=== PATIENT | male | born 1990 | race Caucasian/White ===

== ENCOUNTER 2021-01-02 19:07 | Emergency (ER) | payer SELFPAY ==
[2021-01-02 19:17] VITALS: BP 121/75; PULSE 77; RESP 16; TEMP 36.7; O2SAT 95; BMI 20.9
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
[2021-01-02] MEDS: HYDROcodone-acetaminophen 5-325 mg Tablet 1 TAB PO (19:51)
[2021-01-02 20:41] VITALS: BP 141/72; PULSE 94; RESP 16; TEMP 36.8; O2SAT 95
[2021-01-02 21:15] VITALS: BP 141/72; PULSE 97; RESP 16; TEMP 36.8; O2SAT 97
== END 2021-01-02 21:20 | disposition home or self-care (01) ==
PROVIDERS: Emergency Provider Emergency Medicine
DX: S80.00XA Contusion of unspecified knee, initial encounter (principal); V89.2XXA Person injured in unspecified motor-vehicle accident, traffic, initial encounter; Z77.22 Contact with and (suspected) exposure to environmental tobacco smoke (acute) (chronic)
CPT/HCPCS: 70450; 73562; 99283

== ENCOUNTER → 2021-02-07 11:48 | Outpatient (BNVA) | payer OTHER, SELFPAY | PROVIDERS: Visit Provider Registered Nurse Neonatal Intensive Care | DX: Z20.822 Contact with and (suspected) exposure to COVID-19 (principal) | CPT/HCPCS: 87635 ==

== ENCOUNTER 2022-07-06 18:25 | Emergency (ER) | payer SELFPAY ==
[2022-07-06 18:44] VITALS: BP 131/83; PULSE 78; RESP 14; TEMP 36.7; O2SAT 97
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
== END 2022-07-06 19:50 | disposition home or self-care (01) ==
PROVIDERS: Emergency Provider Nurse Practitioner Family
DX: S29.012A Strain of muscle and tendon of back wall of thorax, initial encounter (principal); S50.01XA Contusion of right elbow, initial encounter; V43.52XA Car driver injured in collision with other type car in traffic accident, initial encounter
CPT/HCPCS: 72072; 72100; 73080; 99283

== ENCOUNTER 2023-09-30 12:54 | Inpatient (IN) | payer MEDICAID, SELFPAY ==
--- NOTE | 2023-09-30 13:04 | ED.C_ITS ---
HPI - Psych 2 General: Chief Complaint: Psychiatric Symptoms Stated Complaint: MHE Time Seen by Provider: 09/30/23 12:55 Source: patient Mode of arrival: ambulatory Limitations: no limitations History of Present Illness: 33-year-old male who has a history of de pression states that he has been under a lot of stress lately he is going through custody battles and is causing him severe depression. He denies any active suicidal plans he had some passing thoughts but denies any suicidality currently states she just feels very depressed and wants to get some help. Denies any worsening improving factors. Associated symptoms: Reports depression; Deny suicidal ideation Review of Systems 2 Const: Denies: fever(s), chills, body aches or change in appetite ENMT: Denies: throat pain or dental pain Card: Denies: chest pain Resp: Denies: dyspnea GI: Denies: abdominal pain, nausea, vomiting or diarrhea Musc: Denies: neck pain or back pain Skin/Breast: Denies: rash Neuro: Denies: headache(s) Psych: Reports: depression; Denies: suicidal ideation Rodolfo/Lymph: Denies: easy bruising PFSH ED 2 PFSH: Medical History (Updated 09/30/23 @ 13:36 by Mikhail Cowart MD) No active medical problems Surgical History No history of previous surgery Family History (Updated 02/17/22 @ 15:13 by PHYLLIS Romero) Mother Cancer Colon Father Cancer Skin Other Dementia Hypertension Denies family history of Diabetes Stroke Social History Smoking and tobacco/nicotine status: never used tobacco/nicotine Second hand smoke exposure: Yes Alcohol intake: unknown Substance/Drug Use: unknown Adopted: No Caregiver/support person: No Lives independently: Yes Household members: family Housing: House Marital status: Single Number of children: 0 service: No Current occupational status: employed Current occupation: [employer] Pets and animals: Yes Pets & animals: cat(s), dog(s) and other Do you think of yourself as: Straight/Heterosexual Current gender identity: Male Physical Exam 2 Const: COMMON NORMALS: no acute distress, patient oriented x3 and healthy appearing HENMT: COMMON NORMALS: normocephalic and atraumatic HEAD & SCALP: n ormocephalic and atraumatic Neck/C-Spine: COMMON NORMALS: full ROM and supple Chest: COMMONS NORMALS: normal inspection of the chest Resp: COMMON NORMALS: normal respiratory effort Cardio: COMMON NORMALS: regular rate, regular rhythm and No murmurs present (Cardio) RATE: regular rate RHYTHM: regular rhythm Extremity: COMMON NORMALS: normal to inspection and full ROM Neuro: COMMON NORMALS: patient oriented x3, moves all extremities and no focal motor deficits Psych: COMMON NORMALS: mental status grossly normal, Normal thought process present and cooperative MOOD & AFFECT: Yes depressed mood THOUGHT PROCESS: Normal thought process present THOUGHT CONTENT: No Suicidality present Skin: COMMON NORMALS: no rashes or lesions noted and no wounds GENERAL SKIN EXAM: no rashes or lesions noted Course 2 Vital Signs: Vital signs: Vital Signs Temperature 98.3 F 09/30/23 13:12 Pulse Rate 77 09/30/23 13:12 Respiratory Rate 17 09/30/23 13:12 Blood Pressure 159/83 09/30/23 13:12 Pulse Oximetry 96 09/30/23 13:12 Oxygen Delivery Me thod Room Air 09/30/23 13:12 [facility] - Psych Medical Decision Making Patient presents here with depression he voluntarily agreed to admission due to severe depression I spoke to psychiatrist patient is medically cleared and will admit to the psych unit Medical Records I reviewed the patient's medical records. Lab Data I reviewed the patient's lab results. 09/30/23 13:14 09/30/23 13:14 Laboratory Results WBC 11.66 10^3/uL (3.29-11.43) H 09/30/23 13:14 RBC 4.92 10^6/uL (3.85-5.65) 09/30/23 13:14 Hgb 14.70 g/dL (11.27-16.99) 09/30/23 13:14 Hct 43.7 % (37-53) 09/30/23 13:14 MCV 88.8 fl (82-101) 09/30/23 13:14 MCH 29.9 pg (27-33) 09/30/23 13:14 MCHC 33.6 g/dL (30-55) 09/30/23 13:14 RDW 12.2 % (12.1-15.1) 09/30/23 13:14 Plt Count 262 10^3/cmm (157-399) 09/30/23 13:14 MPV 10.5 fL (7.4-10.4) H 09/30/23 13:14 Neut % (Auto) 75.7 % 09/30/23 13:14 Lymph % (Auto) 16.0 % 09/30/23 13:14 [place] % (Auto) 6.9 % 09/30/23 13:14 Eos % (Auto) 0.9 % 09/30/23 13:14 Baso % (Auto) 0.4 % 09/30/23 13:14 Neut # (Auto) 8.83 10^3/uL (1.8-7.7) H 09/30/23 13:14 Lymph # (Auto) 1.9 10^3/uL (0.8-4.8) 09/30/23 13:14 [place] # (Auto) 0.8 10^3/uL (0.2-0.9) 09/30/23 13:14 Eos # (Auto) 0.1 10^3/uL (0.0-0.8) 09/30/23 13:14 Baso # (Auto) 0.1 10^3/uL (0.0-0.1) 09/30/23 13:14 Nucleated RBC % (auto) 0 % 09/30/23 13:14 Nucleated RBCs # 0.0 /100WBC 09/30/23 13:14 Sodium 141 mmol/L (136-145) 09/30/23 13:14 Potassium 3.8 mmol/L (3.5-5.1) 09/30/23 13:14 Chloride 104 mmol/L (98-107) 09/30/23 13:14 Carbon Dioxide 21 mmol/L (22-29) L 09/30/23 13:14 Anion Gap 19.8 (5-19) H 09/30/23 13:14 BUN 7 mg/dL (6-20) 09/30/23 13:14 Creatinine 0.8 mg/dL (0.7-1.2) 09/30/23 13:14 GFR Calculation 112.0 mL/min (90-130) 09/30/23 13:14 Glucose 101 mg/dL (65-115) 09/30/23 13:14 Calculated Osmolality 290 mOsm/kg (285-295) 09/30/23 13:14 Calcium 9.3 mg/dL (8.5-10.5) 09/30/23 13:14 Total Bilirubin 0.4 mg/dL (0.15-1.2) 09/30/23 13:14 AST 18 U/L (0-40) 09/30/23 13:14 ALT 16 U/L (0-41) 09/30/23 13:14 Alkaline Phosphatase 94 U/L (40-130) 09/30/23 13:14 Total Protein 8.0 g/dL (6.6-8.7) 09/30/23 13:14 Albumin 4.5 g/dL (3.5-5.2) 09/30/23 13:14 Globulin 3.5 g/dL (1.3-4.6) 09/30/23 13:14 Salicylates < 0.3 mg/dL (3-10) L 09/30/23 13:14 Acetaminophen < 5.0 ug/mL (10-30) L 09/30/23 13:14 Ethyl Alcohol < 10 mg/dL (0-10) 09/30/23 13:14 No radiology studies performed this visit Discharge Plan Discharge Patient Disposition: Admitted As Inpatient Admit Provider: Eleazar Fisher Clinical Impression: Depression Condition: Stable Coding Level of Care Code ED Wet Sander for Matty Dolan
[2023-09-30 13:12] VITALS: BP 159/83; PULSE 77; RESP 17; TEMP 36.8; O2SAT 96; BMI 21.7
[2023-09-30 13:22] LABS: Basophils # 0.1 10^3/uL (0.0-0.1); Basophils % 0.4 %; Eosinophils # 0.1 10^3/uL (0.0-0.8); Eosinophils % 0.9 %; Hematocrit 43.7 % (37-53); Lymphocytes # 1.9 10^3/uL (0.8-4.8); Mean Corpuscular HGB Conc 33.6 g/dL (30-55); Mean Corpuscular Hemoglobin 29.9 pg (27-33); Mean Corpuscular Volume 88.8 fl (82-101); Mean Platelet Volume 10.5 fL (7.4-10.4); Monocytes # 0.8 10^3/uL (0.2-0.9); Monocytes % 6.9 %; Neutrophils # 8.83 10^3/uL (1.8-7.7); Neutrophils % 75.7 %; Nucleated Red Blood Cells % 0 %; Platelet Count 262 10^3/cmm (157-399); Red Blood Count 4.92 10^6/uL (3.85-5.65); Red Cell Distribution Width 12.2 % (12.1-15.1); White Blood Count 11.66 10^3/uL (3.29-11.43)
[2023-09-30 13:43] LABS: Alanine Aminotransferase 16 U/L (0-41); Albumin Level 4.5 g/dL (3.5-5.2); Alkaline Phosphatase 94 U/L (40-130); Anion Gap 19.8 (5-19); Aspartate Amino Transferase 18 U/L (0-40); Blood Urea Nitrogen 7 mg/dL (6-20); Calcium 9.3 mg/dL (8.5-10.5); Carbon Dioxide 21 mmol/L (22-29); Chloride 104 mmol/L (98-107); Creatinine Clr Calc Pharmacy 141.7313; Globulin 3.5 g/dL (1.3-4.6); Glucose 101 mg/dL (65-115); Osmolality Calculated 290 mOsm/kg (285-295); Potassium 3.8 mmol/L (3.5-5.1); Sodium 141 mmol/L (136-145); Total Bilirubin 0.4 mg/dL (0.15-1.2)
[2023-09-30 13:44] LABS: Acetaminophen < 5.0 ug/mL (10-30); Alcohol Level < 10 mg/dL (0-10); Salicylate < 0.3 mg/dL (3-10)
[2023-09-30 14:17] LABS: Amphetamines Screen Urine Negative (Negative); Barbiturates Screen Urine Negative (Negative); Benzodiazepines Screen Urine Negative (Negative); Cocaine Screen Urine Negative (Negative); Opiate Screen Urine Negative (Negative); PCP Screen Urine Negative (Negative); THC Screen Urine Positive (Negative)
[2023-09-30 14:58] VITALS: BP 132/76; PULSE 86; RESP 18; TEMP 37; O2SAT 98
--- NOTE | 2023-09-30 15:27 | PC.NURSE ---
Patient arrived to unit via wheelchair at 1404. Patient is here today because he is seeking help for his depression and mood swings. Patient has two young children from two different women. The first child's mother is being difficult, and now patient is having issues with his current live-in GF/baby's mother. Patient states that he is too depressed to have hobbies. Patient states that he can't stop crying, that he has emotional outbursts that roll like a river and that every little thing sets me off. This has been going on for 5 or 6 weeks. Patient denies AVH and HI. Patient rates anxiety 10/10 and depression 10/10. Patient says that he doesn't have SI but that recently he has had more negative thoughts but wouldn't follow through.
[2023-09-30] MEDS: hyDROXYzine 25 mg Capsule 50 MG PO (15:34)
[2023-09-30 20:37] VITALS: BP 131/67; PULSE 76; RESP 16; TEMP 36.7; O2SAT 98
[2023-10-01 06:00] VITALS: BP 134/83; PULSE 57; RESP 16; O2SAT 98
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
[2023-10-01 14:00] VITALS: BP 129/67; PULSE 87; RESP 16; TEMP 36.6; O2SAT 97
[2023-10-01] MEDS: fluoxetine 20 mg Capsule PO (14:04)
[2023-10-01] MEDS: hyDROXYzine 25 mg Capsule 50 MG PO (20:12)
[2023-10-01 20:28] VITALS: BP 130/77; PULSE 77; RESP 15; TEMP 36.6; O2SAT 97
[2023-10-02 06:00] VITALS: BP 120/66; PULSE 77; RESP 18; TEMP 36.7; O2SAT 98
[2023-10-02] MEDS: fluoxetine 20 mg Capsule PO (08:15)
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
[2023-10-02 09:17] VITALS: BP 120/66; PULSE 77; RESP 18; TEMP 36.7; O2SAT 98
== END 2023-10-02 09:36 | disposition home or self-care (01) | DRG 881 ==
LOC: ER 13:36 → NP 13:38
PROVIDERS: Admitting Provider Psychiatry & Neurology Psychiatry; Emergency Provider Emergency Medicine; Visit Provider Psychiatry & Neurology Psychiatry
DX: F32.A Depression, unspecified (principal); F41.9 Anxiety disorder, unspecified; F43.25 Adjustment disorder with mixed disturbance of emotions and conduct; Z63.0 Problems in relationship with spouse or partner
CPT/HCPCS: 36415; 80053; 80306; 80307; 85025; 97150; 97165; 99285

== ENCOUNTER → 2023-12-01 12:21 | Outpatient (BNVA) | payer OTHER, MEDICAID, SELFPAY | PROVIDERS: Visit Provider Registered Nurse Neonatal Intensive Care | DX: Z20.2 Contact with and (suspected) exposure to infections with a predominantly sexual mode of transmission (principal); L01.00 Impetigo, unspecified | CPT/HCPCS: 87491; 87591 ==

== ENCOUNTER 2024-02-13 21:18 | Emergency (ER) | payer MEDICAID, SELFPAY ==
[2024-02-13 21:29] VITALS: BP 141/98; PULSE 80; RESP 14; TEMP 36.6; O2SAT 96
--- NOTE | 2024-02-13 23:05 | ED_ITS ---
HPI - Skin/Abscess/Foreign Bdy General: Chief complaint: Skin/Abscess/Foreign Body Stated complaint: Hook In Arm Time Seen by Provider: 02/13/24 23:01 History of Present Illness: 33-year-old male patient comes in today with a 3 barbed fishhook in his left upper arm. [place] got a fishhook stuck in his left upper arm. Patient denies any other concerns. Patient cannot remember his last tetanus. Patient also needs a refill on his fluoxetine but could not get in for an appointment for the next 2 weeks and was wondering if we could help him with a refill until then. Patient been without for 2 days. Review of Systems General: Reports: 10 or more systems reviewed and unremarkable except in HPI and below PFSH ED PFSH: Medical History (Updated 02/13/24 @ 23:20 by ASHU Prasad) Psychiatric care Surgical History No history of previous surgery Family History (Updated 02/17/22 @ 15:13 by ASHU Romero-C) Mother Cancer Colon Father Cancer Skin Other Dementia Hypertension Denies family history of Diabetes Stroke Social History Smoking and tobacco/nicotine status: never used tobacco/nicotine Second hand smoke exposure: Yes Alcohol intake: unknown Substance/Drug Use: unknown Adopted: No Caregiver/support person: No Lives independently: Yes Household members: family Housing: House Marital status: Single Number of children: 0 service: No Current occupational status: employed Current occupation: [employer] Pets and animals: Yes Pets & animals: cat(s), dog(s) and other Do you think of yourself as: Straight/Heterosexual Current gender identity: Male Physical Exam Const: COMMON NORMALS: alert HENMT: COMMON NORMALS: normocephalic HEAD & SCALP: normocephalic Neck/C-Spine: COMMON NORMALS: full ROM Resp: COMMON NORMALS: normal respiratory effort and clear to auscultation bilaterally AUSCULTATION: clear to auscultation bilaterally Cardio: COMMON NORMALS: regular rate and regular rhythm RATE: regular rate RHYTHM: regular rhythm GI: COMMON NORMALS: non-tender Back/Pelvis: COMMON NORMALS: thoracic and lumbar spine normal to inspection Extremity: COMMON NORMALS: full ROM LEFT UPPER EXTREMITY: Yes upper arm (Joseph in the upper arm) Neuro: SENSORIUM/ORIENTATION: Yes alert Skin: NARRATIVE SKIN EXAM: Embedded fishhook left upper arm Procedures Foreign Body Removal Site: right and upper extremity Description of foreign body: fish hook Sedation/Analgesia: other (Lidocaine) Technique: removal with forceps and incision made to facilitate removal Confirmed by:: direct visualization Post-procedure exam: awake, alert Course Vital Signs: Vital signs: Vital Signs Temperature 97.8 F 02/13/24 21:29 Pulse Rate 80 02/13/24 21:29 Respiratory Rate 14 02/13/24 21:29 Blood Pressure 141/98 02/13/24 21:29 Pulse Oximetry 96 02/13/24 21:29 Oxygen Delivery Me thod Room Air 02/13/24 21:29 MDM - Skin/Abscess/Foreign Bdy Medicial Decision Making A 33-year-old male patient comes in today for fishhook in the left upper arm. No other injury is noted. Patient appears nontoxic. Patient is cooperative. Differential diagnosis includes limited to foreign body, fishhook, need for prophylaxis tetanus. Wound was clean and fishhook was removed. No sutures were used to close site. Patient was recommended to use bacitracin ointment and keep wound covered monitor for signs of infection. Patient and family both reported understanding and agreed to plan. No radiology studies performed this visit Discharge Plan Discharge Patient Disposition: Home Clinical Impression: Fish hook in upper arm, Adjustment disorder with mixed disturbance of emotions and conduct Condition: Stable Prescriptions: New doxycycline hyclate 100 mg tablet 100 mg PO BID 7 Days Qty: 14 0RF Continued fluoxetine 20 mg Capsule 20 mg PO DAILY 30 Days Qty: 30 1RF No Action mupirocin 2 % ointment 1 applic topical BID Qty: 22 0RF hydroxyzine pamoate 25 mg Capsule 50 mg PO Q6H PRN (Reason: Anxiety) 30 Days Qty: 30 1RF Discharge Orders: Discharge ED (Routine); Ordered 02/13/24 Ordered By: Nick Herrera Discharge Diet: Usual diet Discharge Activity: Increase activity as tolerated Patient Instructions: Puncture Wound (ED) Activity Restrictions/Additional Instructions: Follow-up with primary care. Take medications as directed. Return to ED for new concerns. Coding Level of Care Code ED Insurance Representative for Matty Dolan
[2024-02-13] MEDS: tetanus-dipt-pertussis 0.5 mL SDV IM (23:15)
[2024-02-13 23:36] VITALS: BP 147/73; PULSE 81; RESP 14; O2SAT 95
== END 2024-02-13 23:38 | disposition home or self-care (01) ==
PROVIDERS: Emergency Provider Nurse Practitioner Family
DX: S41.142A Puncture wound with foreign body of left upper arm, initial encounter (principal); W26.8XXA Contact with other sharp object(s), not elsewhere classified, initial encounter; F43.25 Adjustment disorder with mixed disturbance of emotions and conduct; Z77.22 Contact with and (suspected) exposure to environmental tobacco smoke (acute) (chronic); Z23 Encounter for immunization
CPT/HCPCS: 10120; 90471; 90715; 99283

== ENCOUNTER 2025-03-18 14:20 | Emergency (ER) | payer MEDICAID, SELFPAY ==
[2025-03-18 14:41] VITALS: BP 107/83; PULSE 94; RESP 16; TEMP 36.8; O2SAT 99; BMI 23.0
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
[2025-03-18 15:47] LABS: Hematocrit 43.9 % (37-53); Hemoglobin 14.80 g/dL (11.27-16.99); Mean Corpuscular HGB Conc 33.7 g/dL (30-55); Mean Corpuscular Hemoglobin 30.1 pg (27-33); Mean Corpuscular Volume 89.4 fl (82-101); Nucleated Red Blood Cells % 0 %; Platelet Count 219 10^3/cmm (157-399); Red Blood Count 4.91 10^6/uL (3.85-5.65); White Blood Count 9.08 10^3/uL (3.29-11.43)
[2025-03-18 15:53] VITALS: RESP 22; O2SAT 99
[2025-03-18] MEDS: morphine 4 mg/mL SDV 1 mL IVP (15:53)
[2025-03-18 16:07] LABS: Alanine Aminotransferase 9 U/L (0-41); Albumin Level 4.5 g/dL (3.5-5.2); Alkaline Phosphatase 83 U/L (40-130); Anion Gap 14.6 (5-19); Aspartate Amino Transferase 12 U/L (0-40); Blood Urea Nitrogen 11 mg/dL (6-20); Calcium 10.1 mg/dL (8.5-10.5); Carbon Dioxide 28 mmol/L (22-29); Chloride 101 mmol/L (98-107); Creatinine Clr Calc Pharmacy 101.4841; Globulin 3.2 g/dL (1.3-4.6); Glucose 95 mg/dL (65-115); Osmolality Calculated 287 mOsm/kg (285-295); Potassium 4.6 mmol/L (3.5-5.1); Sodium 139 mmol/L (136-145); Total Protein 7.7 g/dL (6.6-8.7)
[2025-03-18 16:42] VITALS: BP 142/86; PULSE 73; RESP 14; O2SAT 98
[2025-03-18 16:59] LABS: Glucose Urine UA Negative (Normal); Nitrate Urine Negative (Negative); Specific Gravity, Urine 1.015 (1.005-1.030)
[2025-03-18 17:04] LABS: Add Urine Microscopic? YES
--- NOTE | 2025-03-18 17:06 | PC.NURSE ---
Pt iv removed with catheter intact.
[2025-03-18 17:26] VITALS: BP 136/75; PULSE 80; RESP 16; O2SAT 96
[2025-03-18] MEDS: mupirocin oint 22 gm 1 APPLIC TOPICAL (17:26)
== END 2025-03-18 17:28 | disposition home or self-care (01) ==
PROVIDERS: Emergency Provider Family Medicine
DX: S80.811A Abrasion, right lower leg, initial encounter (principal); S40.811A Abrasion of right upper arm, initial encounter; S50.811A Abrasion of right forearm, initial encounter; V29.99XA Rider (driver) (passenger) of other motorcycle injured in unspecified traffic accident, initial encounter; F17.290 Nicotine dependence, other tobacco product, uncomplicated
CPT/HCPCS: 36415; 70450; 71045; 72040; 73610; 80053; 81001; 85025; 96374; 96375; 99285; J1885; J2270; J9999

== ENCOUNTER 2025-03-26 13:53 | Emergency (ER) | payer MEDICAID, SELFPAY ==
[2025-03-26 13:58] VITALS: BP 129/68; PULSE 77; TEMP 36.6; O2SAT 98
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
== END 2025-03-26 15:10 | disposition home or self-care (01) ==
PROVIDERS: Emergency Provider Physician Assistant
DX: S79.911A Unspecified injury of right hip, initial encounter (principal); F17.290 Nicotine dependence, other tobacco product, uncomplicated; X58.XXXA Exposure to other specified factors, initial encounter
CPT/HCPCS: 73502; 99283